=== PATIENT | female | born 1975 | race Hispanic/Latino ===

== ENCOUNTER 2018-03-18 13:59 | Emergency (ER) | payer MEDICARE ==
[2018-03-18 15:09] VITALS: BP 102/50
[2018-03-18] MEDS ORDERED: BACTRIM DS PO ONE (15:43)
[2018-03-18] MEDS ORDERED: NORCO 5/325 PO ONE (15:43)
[2018-03-18] MEDS ORDERED: MOTRIN PO ONE (15:45)
--- NOTE | 2018-03-18 16:00 | Emergency Department Report ---
- General Chief complaint: Wound/Laceration Stated complaint: SPIDER BITE Time Seen by Provider: 03/18/18 15:27 Source: patient Mode of arrival: Ambulatory Limitations: No Limitations - History of Present Illness Initial comments: 42-year-old female with a past medical history of bipolar disorder, schizoaffective disorder, and PTSD presents from [facility] for a wound to her distal forearm proximal to the wrist. Patient states that the wound has been there for several weeks initially started out with bite wounds and a small lump. He progressed and increased in size. Patient has been expressing pus from the wound. She complains of intermittent chills without documented fever. She has had intermittent nausea vomiting without any vomiting today. No reports of abdominal pain. She has been placing adhesive bandages over the area which have been partially removing skin when she was change the bandage because it does did not hear portion of the finish was not big enough to cover the whole wound. Patient states she has received tetanus 4 years ago. She has not been by a physician since wound has been present. Patient states she has not currently receiving psychiatric treatment and she is cyst renting a room at [facility] because it is affordable - Related Data Previous Rx's Medication Instructions Recorded Last Taken Type HYDROcodone/APAP 5-325 [[place] 1 each PO ONCE #15 tablet 03/18/18 Unknown Rx 5-325 mg TAB] Ibuprofen [Motrin 800 MG tab] 800 mg PO ONCE #30 tablet 03/18/18 Unknown Rx Ondansetron [Zofran Odt] 4 mg PO Q8HR PRN #20 tab.rapdis 03/18/18 Unknown Rx Sulfamethoxazole/Trimethoprim 1 each PO ONCE #20 tablet 03/18/18 Unknown Rx [Bactrim DS TAB] Allergies Allergy/AdvReac Type Severity Reaction Status Date / Time lamotrigine [From Lamictal] Allergy Itching Verified 03/18/18 14:16 oxcarbazepine Allergy Itching Verified 03/18/18 14:16 [From Trileptal] Abscess Boil HPI - HPI Chief Complaint: Wound/Laceration Stated Complaint: SPIDER BITE Time Seen by Provider: 03/18/18 15:27 Home Medications: Previous Rx's Medication Instructions Recorded Last Taken Type HYDROcodone/APAP 5-325 [[place] 1 each PO ONCE #15 tablet 03/18/18 Unknown Rx 5-325 mg TAB] Ibuprofen [Motrin 800 MG tab] 800 mg PO ONCE #30 tablet 03/18/18 Unknown Rx Ondansetron [Zofran Odt] 4 mg PO Q8HR PRN #20 tab.rapdis 03/18/18 Unknown Rx Sulfamethoxazole/Trimethoprim 1 each PO ONCE #20 tablet 03/18/18 Unknown Rx [Bactrim DS TAB] Allergies/Adverse Reactions: Allergies Allergy/AdvReac Type Severity Reaction Status Date / Time lamotrigine [From Lamictal] Allergy Itching Verified 03/18/18 14:16 oxcarbazepine Allergy Itching Verified 03/18/18 14:16 [From Trileptal] ED Review of Systems ROS: Stated complaint: SPIDER BITE Other details as noted in HPI Comment: All other systems reviewed and negative ED Past Medical Hx - Past Medical History Previous Medical History?: Yes Hx Psychiatric Treatment: Yes (Bi polar, schizo affective disorder, PTSD.) - Surgical History Past Surgical History?: Yes Additional Surgical History: C section, tonsilectomy - Social History Smoking Status: Never Smoker Substance Use Type: None - Medications Home Medications: Home Medications Medication Instructions Recorded Confirmed Last Taken Type HYDROcodone/APAP 5-325 [[place] 1 each PO ONCE #15 tablet 03/18/18 Unknown Rx 5-325 mg TAB] Ibuprofen [Motrin 800 MG tab] 800 mg PO ONCE #30 tablet 03/18/18 Unknown Rx Ondansetron [Zofran Odt] 4 mg PO Q8HR PRN #20 tab.rapdis 03/18/18 Unknown Rx Sulfamethoxazole/Trimethoprim 1 each PO ONCE #20 tablet 03/18/18 Unknown Rx [Bactrim DS TAB] ED Physical Exam - General Limitations: No Limitations - Skin Skin exam: Present: cyanosis - Other Other exam information: General: No limitations, patient is alert in no acute distress Head exam: Atraumatic, normocephalic Eyes exam: Normal appearance ENT: Moist mucous membrane, normal oropharynx Neck exam: Normal inspection, full range of motion Respiratory exam: Clear to auscultation bilateral, no wheezes, rales, crackles Cardiovascular: Normal rate and rhythm, normal heart sounds Abdomen: Soft, nondistended, and nontender, with normal bowel sounds, no rebound, or guarding Extremity: Full range of motion normal inspection no deformity Back: Normal Inspection, full range of motion, no tenderness Neurologic: Alert, oriented x3, cranial nerves intact, no motor or sensory deficit Psychiatric: normal affect, normal mood Skin: left distal forearn skin 4cm circular infected superficial wound. Very minimal area of necrosis. mild bloody drainage without pus, erythema at the board is due to skin irritation versus cellulitis. Positive warmth. pt also has a sore superficial skin sore to right jaw area ED Course Vital Signs 03/18/18 03/18/18 14:10 15:06 Temperature 98.8 F Pulse Rate 87 Respiratory 16 Rate Blood Pressure 110/83 102/50 O2 Sat by Pulse 98 Oximetry ED Medical Decision Making - Medical Decision Making Left forearm wound No purulent drainage Wound has been present for several weeks but not healing well No current nausea or vomiting Treated with [place] and Bactrim Will be discharged home with treatment Even if this is a black spider bite it occurred several weeks ago and pt is not a candidate for antivenom at this time. She currently lacks systemic symptoms - Differential Diagnosis abscesses, cellulitis, black bite Critical Care Time: No Critical care attestation.: If time is entered above; I have spent that time in minutes in the direct care of this critically ill patient, excluding procedure time. ED Disposition Clinical Impression: Infected bite wound Disposition: - TO HOME OR SELFCARE Is pt being admited?: No Does the pt Need Aspirin: No Condition: Stable Instructions: Wound Infection (ED) Additional Instructions: Take the medication as prescribed. Follow up with your doctor or the doctor provided. Return if symptoms worsen as indicated by your discharge instructions Prescriptions: HYDROcodone/APAP 5-325 [[place] 5-325 mg TAB] 1 each PO ONCE #15 tablet Ibuprofen [Motrin 800 MG tab] 800 mg PO ONCE #30 tablet Ondansetron [Zofran Odt] 4 mg PO Q8HR PRN #20 tab.rapdis PRN Reason: Nausea And Vomiting Sulfamethoxazole/Trimethoprim [Bactrim DS TAB] 1 each PO ONCE #20 tablet Referrals: [facility] [Provider Group] - 3-5 Days (primary care clinic) ADRIENNE OROZCO DO [Staff Physician] - 3-5 Days (primary care doctor) Time of Disposition: 16:16
== END 2018-03-18 17:11 | disposition home or self-care (01) ==
LOC: ED 13:59
DX: T63.301A Toxic effect of unspecified spider venom, accidental (unintentional), initial encounter (principal); L08.89 Other specified local infections of the skin and subcutaneous tissue; F31.9 Bipolar disorder, unspecified; F20.9 Schizophrenia, unspecified; F43.10 Post-traumatic stress disorder, unspecified; Z90.89 Acquired absence of other organs; Z88.8 Allergy status to other drugs, medicaments and biological substances; Y92.89 Other specified places as the place of occurrence of the external cause
CPT/HCPCS: 99282

== ENCOUNTER 2018-09-04 11:38 | Inpatient (IN) | payer MEDICARE ==
--- NOTE | 2018-09-04 11:49 | Emergency Department Report ---
Addendum entered and electronically signed by SAMANTHA HANSEN NP 09/04/18 12:38: Blank Doc - Documentation Documentation: Patient can go to [facility]. No fever. Normal CBC. Original Note: Blank Doc - Documentation Documentation: This is a 43-year-old female that presents with right hand cellulitis. Patient stated started with right eyebrow and left arm. Stated was bitten by spider to left arm and now right arm has swelling with cellulitis. This initial assessment diagnostic orders/clinical plan/treatment(s) is/are subject to change based on patient's health status, clinical progression and re-assessment by fellow clinical providers in the ED. Further treatment and workup at subsequent clinical providers discretion. Patient/guardians urged not to elope from ED s their condition may be serious if not clinically assessed and managed. Initial orders include: 1-Patient sent to Main ED for further evaluation and treatment 2-Labs
[2018-09-04 12:34] LABS: Basophils % (Auto) 0.3 % (0.0-1.8); Eosinophils % (Auto) 0.3 % (0.0-4.3); Hematocrit 41.1 % (30.3-42.9); Hemoglobin 13.7 gm/dl (10.1-14.3); Lymphocytes # (Auto) 0.7 K/mm3 (1.2-5.4); Lymphocytes % (Auto) 7.2 % (13.4-35.0); Mean Corpuscular HGB Conc 34 % (30-34); Mean Corpuscular Volume 95 fl (79-97); Monocytes # (Auto) 1.1 K/mm3 (0.0-0.8); Monocytes % (Auto) 10.8 % (0.0-7.3); Platelet Count 219 K/mm3 (140-440); Red Blood Count 4.35 M/mm3 (3.65-5.03); Red Cell Distribution Width 13.5 % (13.2-15.2)
[2018-09-04 12:53] LABS: Alanine Aminotransferase 11 units/L (7-56); Albumin 3.7 g/dL (3.9-5); BUN/Creatinine Ratio 18; Blood Urea Nitrogen 9 mg/dL (7-17); Hemolysis Index 13
[2018-09-04] MEDS ORDERED: STERILE IV STA (13:33)
[2018-09-04] MEDS ORDERED: VANCOMYCIN/NS 1 GM/250 ML 1 GM/250 ML BAG IV ONE (13:33)
[2018-09-04] MEDS ORDERED: WATER IV STA (13:33)
[2018-09-04] MEDS ORDERED: ZOSYN NICU IV STA (13:33)
[2018-09-04] MEDS ORDERED: MORPHINE ONE ×3 (13:42→16:08)
[2018-09-04] MEDS ORDERED: MORPHINE IV ONE ×2 (13:42→16:04)
[2018-09-04] MEDS ORDERED: ZOFRAN IV ONE (13:43)
[2018-09-04] MEDS ORDERED: VANCOMYCIN 1,250 MG in NACL 0.9% 250ML 250 ML IV ONE (13:45)
[2018-09-04] MEDS ORDERED: ZOSYN/NS 4.5GM/100ML 4.5 GM/100 ML VIAL IV ONE (13:47)
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
--- NOTE | 2018-09-04 15:21 | XRay Report ---
XRAY RIGHT HAND THREE VIEWS: 09/04/18 11:38:00 CLINICAL: Trauma and pain. FINDINGS: The bones and joint spaces are normal. No fracture or dislocation. Marked soft tissue edema of the dorsum of the hand. No foreign body or soft tissue air. The carpal bones are intact and the distal radius and ulna are intact. IMPRESSION: Marked soft tissue edema but no fracture or dislocation.
[2018-09-04] MEDS ORDERED: BENADRYL IV ONE (16:04)
--- NOTE | 2018-09-04 19:48 | Cat Scan Report ---
FINAL REPORT PROCEDURE: CT UPPER EXTREM RT W CON TECHNIQUE: Computerized axial tomography was performed of the RIGHT hand after the IV injection of i odinated nonionic contrast. HISTORY: Hand swelling COMPARISON: No prior studies are available for comparison. FINDINGS: There is diffuse dorsal subcutaneous edema. No organized fluid collection is seen. No enhancing mass is identified. There is limited evaluation of the extensor tendons. No fracture is seen. No focal oss eous lesions are identified IMPRESSION: No acute osseous abnormality is seen. There is diffuse dorsal soft tissue swelling which is nonspecific but could be related to cellulitis. No organized fluid collection is seen.
[2018-09-04] MEDS ORDERED: TYLENOL PO PRN (20:01)
[2018-09-04] MEDS ORDERED: ZOFRAN IV PRN (20:01)
[2018-09-04] MEDS ORDERED: SODIUM CHLORIDE FLUSH SYRINGE 10 ML IV PRN (20:01)
--- NOTE | 2018-09-04 20:01 | History and Physical Report ---
History of Present Illness Chief complaint: My hand is red History of present illness: 43 YO Female with Bipolar, Schizoaffective Disorder, Nicotine Dependence presents to ED for evaluation. Pt states that she has experienced wounds all over her body over the past several years, with worsening symptoms over the past 2 weeks. Pt also reports redness and drainage from the wound on her right hand. Pt also reports similar symptoms from the lesions on her right shoulder, right forearm, and right eyebrow. Pt transported to [facility] by family for further care and evaluation. Pt seen and evaluated in ED and found to have R hand Cellulitis, as well as suspected Pyoderma Gangrenosum. Pt admitted to medical floor and initiated on IV antibiotic therapy. Past History Past Medical History: other (Bipolar, Schizophrenia) Past Surgical History: , tonsillectomy Social history: smoking Family history: no significant family history (reviewed) Medications and Allergies Allergies Allergy/AdvReac Type Severity Reaction Status Date / Time lamotrigine [From Lamictal] Allergy Itching Verified 03/18/18 14:16 oxcarbazepine Allergy Itching Verified 03/18/18 14:16 [From Trileptal] Home Medications Medication Instructions Recorded Confirmed Last Taken Type No Known Home Medications [No 09/04/18 09/04/18 Unknown History Reported Home Medications] Review of Systems Constitutional: no weight loss, no weight gain, no fever, no chills Ears, nose, mouth and throat: no ear pain, no ear discharge, no tinnitis, no decreased hearing, no nose pain Breasts: no change in shape, no swelling, no mass Cardiovascular: no chest pain, no orthopnea, no palpitations, no rapid/irregular heart beat, no edema Respiratory: no cough, no cough with sputum, no excessive sputum, no hemoptysis Gastrointestinal: no abdominal pain, no nausea, no vomiting, no diarrhea Genitourinary Female: no dysmenorrhea, no pelvic pain, no flank pain, no menorrhagia, no dysuria, no urinary frequency Rectal: no pain, no incontinence, no bleeding Musculoskeletal: no neck stiffness, no neck pain, no shooting arm pain, no arm numbness/tingling, no low back pain Integumentary: redness, sores, lesions, no jaundice, no boils, no growths, no bullae Neurological: no transient paralysis, no paralysis, no weakness, no parathesias, no numbness, no tingling Psychiatric: no anxiety, no memory loss, no change in sleep habits, no sleep disturbances, no insomnia Endocrine: no cold intolerance, no heat intolerance, no polyphagia, no polydipsia, no polyuria, no nocturia Hematologic/Lymphatic: no easy bruising, no easy bleeding Allergic/Immunologic: no urticaria, no allergic rhinitis, no wheezing Exam - Constitutional Vitals: Temp Pulse Resp BP Pulse Ox 98.8 F 89 19 103/55 98 09/04/18 19:35 09/04/18 19:35 09/04/18 19:35 09/04/18 19:35 09/04/18 19:35 General appearance: Present: mild distress - EENT Eyes: Present: PERRL ENT: hearing intact, clear oral mucosa - Neck Neck: Present: supple, normal ROM - Respiratory Respiratory effort: normal Respiratory: bilateral: CTA - Cardiovascular Heart Sounds: Present: S1 & S2. Absent: rub, click - Extremities Extremities: pulses symmetrical, No edema Peripheral Pulses: within normal limits - Abdominal General gastrointestinal: Present: soft, non-tender, non-distended, normal bowel sounds Female genitourinary: Present: normal - Integumentary Integumentary: Present: clear, warm, erythema - Musculoskeletal Musculoskeletal: gait normal, strength equal bilaterally - Psychiatric Psychiatric: appropriate mood/affect, intact judgment & insight - Neurologic Neurologic: CNII-XII intact, moves all extremities Results - Labs CBC & Chem 7: 09/04/18 12:02 09/04/18 12:02 Labs: Abnormal lab results 09/04/18 09/04/18 Range/Units 12:02 12:02 Lymph % (Auto) 7.2 L (13.4-35.0) % [place] % (Auto) 10.8 H (0.0-7.3) % Lymph # 0.7 L (1.2-5.4) K/mm3 [place] # 1.1 H (0.0-0.8) K/mm3 Seg Neutrophils % 81.4 H (40.0-70.0) % Seg Neutrophils # 8.1 H (1.8-7.7) K/mm3 Creatinine 0.5 L (0.7-1.2) mg/dL Albumin 3.7 L (3.9-5) g/dL Assessment and Plan - Patient Problems (1) Cellulitis of hand, right Current Visit: Yes Status: Acute Plan to address problem: IV antibiotic therapy, Xray right Hand, CT Right hand, wound care consulted. (2) Bipolar disorder Current Visit: Yes Status: Acute (3) Pyoderma gangrenosum Current Visit: Yes Status: Acute Plan to address problem: ESR, CRP, ANCA, hepatitis panel, Serum/urine Protein Electrophoresis, Topical Triamcinolone BID (4) DVT prophylaxis Current Visit: Yes Status: Acute Plan to address problem: SCD to BLE while in bed.
[2018-09-04] MEDS ORDERED: VANCOMYCIN PHARMACY TO DOSE IV SCH (21:00)
[2018-09-04 22:32] LABS: Hepatitis B Surface Antigen Non-Reactive (Negative); Hepatitis C Virus Antibody Non-Reactive (NonReactive)
[2018-09-05] MEDS: PERCOCET 5/325 PO PRN ×4 (00:02→22:34)
[2018-09-05] MEDS: KENALOG TP SCH ×2 (00:03→10:08)
[2018-09-05] MEDS: SODIUM CHLORIDE FLUSH SYRINGE 10 ML IV SCH ×2 (00:03→10:09)
[2018-09-05] MEDS: VANCOMYCIN/NS 1 GM/250 ML 1 GM/250 ML BAG IV SCH ×2 (02:10→13:52)
--- NOTE | 2018-09-05 10:30 | Progress Note ---
Assessment and Plan Assessment and plan: Right hand cellulitis. Continue IV antibiotics. Wound care consultation. 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 No abscess. ID consultation. ? Pyoderma gangrenosum. Follow-up ESR, CRP, ANCA, hepatitis panel, Serum/urine Protein Electrophoresis, Bipolar disorder. Continue medications. DVT prophylaxis. SCD to BLE while in bed. History Interval history: 43 YO Female with Bipolar, Schizoaffective Disorder, Nicotine Dependence admitted to the [facility] with diagnosis of right hand/forearm cellulitis. Pt states that she has experienced wounds all over her body over the past several years, with worsening symptoms over the past 2 weeks. No new issues overnight. Hospitalist Physical - Constitutional Vitals: Temp Pulse Resp BP Pulse Ox 98.0 F 75 18 92/49 98 09/05/18 06:21 09/05/18 06:21 09/05/18 06:21 09/05/18 06:21 09/05/18 10:24 General appearance: Present: mild distress - EENT Eyes: Present: PERRL, EOM intact ENT: hearing intact, clear oral mucosa, dentition normal - Neck Neck: Present: supple, normal ROM - Respiratory Respiratory effort: normal Respiratory: bilateral: CTA - Cardiovascular Rhythm: regular Heart Sounds: Present: S1 & S2. Absent: gallop, rub - Extremities Extremities: no ischemia, Full ROM, abnormal (right forearm erythema with quarter size open wound lateral wrist) - Abdominal General gastrointestinal: soft, non-tender, non-distended, normal bowel sounds - Integumentary Integumentary: Present: clear, warm, dry - Neurologic Neurologic: CNII-XII intact, moves all extremities Results - Labs CBC & Chem 7: 09/04/18 12:02 09/04/18 12:02 Labs: Laboratory Last Values WBC 9.9 K/mm3 (4.5-11.0) 09/04/18 12:02 RBC 4.35 M/mm3 (3.65-5.03) 09/04/18 12:02 Hgb 13.7 gm/dl (10.1-14.3) 09/04/18 12:02 Hct 41.1 % (30.3-42.9) 09/04/18 12:02 MCV 95 fl (79-97) 09/04/18 12:02 MCH 32 pg (28-32) 09/04/18 12:02 MCHC 34 % (30-34) 09/04/18 12:02 RDW 13.5 % (13.2-15.2) 09/04/18 12:02 Plt Count 219 K/mm3 (140-440) 09/04/18 12:02 Lymph % (Auto) 7.2 % (13.4-35.0) L 09/04/18 12:02 [place]alfa % (Auto) 10.8 % (0.0-7.3) H 09/04/18 12:02 Eos % (Auto) 0.3 % (0.0-4.3) 09/04/18 12:02 Baso % (Auto) 0.3 % (0.0-1.8) 09/04/18 12:02 Lymph # 0.7 K/mm3 (1.2-5.4) L 09/04/18 12:02 [place] # 1.1 K/mm3 (0.0-0.8) H 09/04/18 12:02 Eos # 0.0 K/mm3 (0.0-0.4) 09/04/18 12:02 Baso # 0.0 K/mm3 (0.0-0.1) 09/04/18 12:02 Seg Neutrophils % 81.4 % (40.0-70.0) H 09/04/18 12:02 Seg Neutrophils # 8.1 K/mm3 (1.8-7.7) H 09/04/18 12:02 ESR 38 mm/Hr (0-20) 09/04/18 21:26 Sodium 137 mmol/L (137-145) 09/04/18 12:02 Potassium 3.6 mmol/L (3.6-5.0) 09/04/18 12:02 Chloride 98.9 mmol/L (98-107) 09/04/18 12:02 Carbon Dioxide 26 mmol/L (22-30) 09/04/18 12:02 Anion Gap 16 mmol/L 09/04/18 12:02 BUN 9 mg/dL (7-17) 09/04/18 12:02 Creatinine 0.5 mg/dL (0.7-1.2) L 09/04/18 12:02 Estimated GFR > 60 ml/min 09/04/18 12:02 BUN/Creatinine Ratio 18 % 09/04/18 12:02 Glucose 93 mg/dL (65-100) 09/04/18 12:02 Lactic Acid 1.30 mmol/L (0.7-2.0) 09/04/18 13:46 Calcium 9.0 mg/dL (8.4-10.2) 09/04/18 12:02 Total Bilirubin 0.80 mg/dL (0.1-1.2) 09/04/18 12:02 AST 13 units/L (5-40) 09/04/18 12:02 ALT 11 units/L (7-56) 09/04/18 12:02 Alkaline Phosphatase 68 units/L (35-129) 09/04/18 12:02 C-Reactive Protein 14.90 mg/dL (0.00-1.30) H 09/04/18 21:35 Total Protein 7.1 g/dL (6.3-8.2) 09/04/18 12:02 Albumin 3.7 g/dL (3.9-5) L 09/04/18 12:02 Albumin/Globulin Ratio 1.1 % 09/04/18 12:02 HCG, Qual Negative (Negative) 09/04/18 12:02 Hepatitis A IgM Ab Non-reactive (NonReactive) 09/04/18 21:34 Hep Bs Antigen Non-reactive (Negative) 09/04/18 21:34 Hep B Core IgM Ab Non-reactive (NonReactive) 09/04/18 21:34 Hepatitis C Antibody Non-reactive (NonReactive) 09/04/18 21:34
--- NOTE | 2018-09-05 16:13 | Consultation ---
History of Present Illness - Reason for Consult Consult date: 09/05/18 Right hand cellulitis, ?pyoderma Requesting physician: LUIS WILD - History of Present Illness The patient is a 43-year-old female with schizoaffective disorder, bipolar disorder who presented to the emergency room yesterday with complaints of multiple wounds including right hand swelling and pain. About 2 weeks ago, she developed a wound around her right eyebrow apparently some drainage, she a ttributes this to her shaving her eyebrows, then later, she developed redness, pain and swelling of her right hand that progressively got worse and was associated with some fevers and chills and night sweats. She also reports additional wounds including her left forearm following a similar timeline. Apparently, she had a spider bite to her left forearm several months ago resulting in a wound that but had completely healed. Otherwise she denies any other systemic complaints. She received a dose of Zosyn and vancomycin in the emergency room and now has been continued on vancomycin. Infectious diseases was consulted for additional recommendations. She is disabled. Denies any smoking or IV drug use. He is smoked some marijuana in the past. Denies any alcohol use. She denies any physical abuse or trauma. She previously used to stay note , and about 4 days ago she moved to a town house where she is renting one room. Apparently, she's had spider bites before and has seen cockroaches and bedbugs in the hotel where she used to live. Review of Systems: General: no fevers,chills or rigors here HEENT: no new visual disturbance Respiratory: No cough, sputum, hemoptysis or shortness of breath Cardiovascular: No chest pain, syncope Gastrointestinal: No nausea, vomiting or diarrhea Genitourinary: No dysuria or hematuria Musculoskeletal: No new or worsening neck pain or back pain Neurologic: No headaches, seizures Hematologic: No easy bruising or bleeding Endocrine: No night sweats or acute weight loss Skin: negative for rash, jaundice Psychiatric: No suicidal or homicidal ideation Past History Past Medical History: other (Bipolar, Schizophrenia) Past Surgical History: , tonsillectomy Social history: smoking Family history: no significant family history (reviewed) Medications and Allergies Allergies Allergy/AdvReac Type Severity Reaction Status Date / Time lamotrigine [From Lamictal] Allergy Itching Verified 03/18/18 14:16 oxcarbazepine Allergy Itching Verified 03/18/18 14:16 [From Trileptal] Home Medications Medication Instructions Recorded Confirmed Last Taken Type No Known Home Medications [No 09/04/18 09/04/18 Unknown History Reported Home Medications] Active Meds: Active Medications Acetaminophen (Tylenol) 650 mg PO Q4H PRN PRN Reason: Pain MILD(1-3)/Fever >100.5/RUSSO Vancomycin HCl (Vancomycin/Ns 1 Gm/250 Ml) 1 gm in 250 mls @ 166.667 mls/hr IV Q12H [facility] Last Admin: 09/05/18 13:52 Dose: 166.667 mls/hr Documented by: Ondansetron HCl (Zofran) 4 mg IV Q8H PRN PRN Reason: Nausea And Vomiting Oxycodone/Acetaminophen (Percocet 5/325) 1 tab PO Q4H PRN PRN Reason: Pain, Moderate (4-6) Last Admin: 09/05/18 08:40 Dose: 1 tab Documented by: Sodium Chloride (Sodium Chloride Flush Syringe 10 Ml) 10 ml IV BID [facility] Last Admin: 09/05/18 10:09 Dose: 10 ml Documented by: Sodium Chloride (Sodium Chloride Flush Syringe 10 Ml) 10 ml IV PRN PRN PRN Reason: LINE FLUSH Triamcinolone Acetonide (Kenalog) 1 applic TP BID [facility] Last Admin: 09/05/18 10:08 Dose: 1 applic Documented by: Physical Examination - Physical Exam Narrative exam: Physical Exam: Constitutional: Alert, cooperative. No acute distress Head, Ears, Nose: Normocephalic, atraumatic. External ears, nose normal Eyes: Conjunctivae/corneas clear. No icterus. No ptosis. Neck: Supple, no meningeal signs Oral: dentition fair, no thrush Cardiovascular: S1, S2 normal. Respiratory: Good air entry, clear to auscultation bilaterally GI: Soft, non-tender; bowel sounds normal. No peritoneal signs Musculoskeletal: No pedal edema, no cyanosis. Skin: Right eyebrow about 1.5 cm superficial wound without any purulence or drainage. There is no warmth or tenderness. Right arm with superficial abrasion on again without purulence or drainage or acute inflammation. Similar lesion also on the right shoulder blade area. Left forearm with superficial wound with clean base with no surrounding redness or tenderness. Right hand dorsal surface with a wound with a central eschar and surrounding redness, warmth and tenderness. No active drainage or purulence, no areas of fluctuation. Hem/Lymphatic: No palpable cervical or supraclavicular nodes. No lymphangitis Psych: Mood ok. Affect normal Neurological: Awake, alert, oriented. No gross abnormality - Constitutional Vitals: Vital Signs Temp Pulse Resp BP Pulse Ox 99.3 F 80 18 90/50 97 09/05/18 12:50 09/05/18 12:50 09/05/18 12:50 09/05/18 12:50 09/05/18 12:50 Temperature -Last 24 Hours Temperature 99.3 F Temperature 98.0 F Temperature 98.6 F Temperature 98.8 F Temperature 98.7 F Results - Labs CBC & Chem 7: 09/04/18 12:02 09/04/18 12:02 Labs: Abnormal lab results 09/04/18 Range/Units 21:35 C-Reactive Protein 14.90 H (0.00-1.30) mg/dL Imaging: personally reviewed: CT of the right hand with IV contrast showed soft tissue swelling consistent with cellulitis, no underlying abscess or bony abnormality. Assessment and Plan Cultures: 09/04/2018 blood culture: No growth A/P: 43-year-old female with schizoaffective disorder, bipolar disorder admitted with: 1) Right hand cellulitis: Right hand does appear warm, swollen and tender and seems to be responding to IV antibiotics. Continue IV vancomycin for now. 2) Multiple other wounds involving right eyebrow, right arm, right shoulder blade, left forearm: These are not warm, tender. There is no purulence or drainage. These do not appear to be infected. Right eyebrow wound seemingly was associated with eyebrow shaving hence raises the concern for possible pathergy which is associated with pyoderma. Agree with checking for vasculitis and autoimmune etiology. Also check hepatitis B and C. Urine tox screen ordered. Continue wound care. Recs: - Continue IV Vancomycin, target trough: 10-20 mcg/ml - f/u hepatitis panel, vasculitic panel - urinary tox screen ordered - continue wound care - HIV ordered MD [facility] C: [phone] O: [phone] F: [phone]
[2018-09-06] MEDS: KENALOG TP SCH ×3 (00:27→21:38)
[2018-09-06] MEDS: SODIUM CHLORIDE FLUSH SYRINGE 10 ML IV SCH ×3 (00:27→21:33)
[2018-09-06] MEDS: VANCOMYCIN/NS 1 GM/250 ML 1 GM/250 ML BAG IV SCH ×2 (03:47→13:31)
[2018-09-06] MEDS: PERCOCET 5/325 PO PRN ×3 (04:59→21:34)
[2018-09-06 05:23] LABS: Basophils % (Auto) 1.1 % (0.0-1.8); Eosinophils # (Auto) 0.1 K/mm3 (0.0-0.4); Eosinophils % (Auto) 3.4 % (0.0-4.3); Hematocrit 31.5 % (30.3-42.9); Hemoglobin 10.9 gm/dl (10.1-14.3); Lymphocytes # (Auto) 1.2 K/mm3 (1.2-5.4); Lymphocytes % (Auto) 31.4 % (13.4-35.0); Mean Corpuscular HGB Conc 35 % (30-34); Mean Corpuscular Volume 93 fl (79-97); Monocytes # (Auto) 0.4 K/mm3 (0.0-0.8); Monocytes % (Auto) 11.8 % (0.0-7.3); Platelet Count 207 K/mm3 (140-440); Red Blood Count 3.38 M/mm3 (3.65-5.03); Red Cell Distribution Width 13.6 % (13.2-15.2)
[2018-09-06 06:40] LABS: BUN/Creatinine Ratio 23; Blood Urea Nitrogen 9 mg/dL (7-17); Calcium 7.8 mg/dL (8.4-10.2); Hemolysis Index 3
--- NOTE | 2018-09-06 10:44 | Progress Note ---
Assessment and Plan Cultures: 09/04/2018 blood culture: No growth A/P: 43-year-old female with schizoaffective disorder, bipolar disorder admitted with: 1) Right hand cellulitis: Right hand does appear warm, swollen and tender and seems to be responding to IV antibiotics. Continue IV vancomycin for now. -ESR 38 -CRP 14.9 2) Multiple other wounds involving right eyebrow, right arm, right shoulder b lade, left forearm: These are not warm, tender. There is no purulence or drainage. These do not appear to be infected. Right eyebrow wound seemingly was associated with eyebrow shaving hence raises the concern for possible pathergy which is associated with pyoderma. Agree with checking for vasculitis and autoimmune etiology. Also check hepatitis B and C. Urine tox screen ordered. Will also check EZEQUIEL, C3, C4. Continue wound care. Recs: - Continue IV Vancomycin, target trough: 10-20 mcg/ml, D2 - f/u vasculitic panel - f/u urinary tox screen ordered - continue wound care -EZEQUIEL, C3 and C4 ordered Dr. Solares will be semiconductor packages platemaker this weekend, . Please call for questions. [facility] M: [id number] O:[phone] Subjective Date of service: 09/06/18 Interval history: Patient seen and examined. Stated that her hand was feeling better today, no fevers. Nurses notes, lab and reports reviewed, discussed with patient.. Objective - Exam Narrative Exam: Constitutional: Alert, cooperative. No acute distress Head, Ears, Nose: Normocephalic, atraumatic. External ears, nose normal Eyes: Conjunctivae/corneas clear. No icterus. No ptosis. Neck: Supple, no meningeal signs Oral: dentition fair, no thrush Cardiovascular: S1, S2 normal. Respiratory: Good air entry, clear to auscultation bilaterally GI: Soft, non-tender; bowel sounds normal. No peritoneal signs Musculoskeletal: No pedal edema, no cyanosis. Skin: Right eyebrow about 1.5 cm superficial wound without any purulence or drainage. There is no warmth or tenderness. Right arm with superficial abrasion on again without purulence or drainage or acute inflammation. Similar lesion also on the right shoulder blade area. Left forearm with superficial wound with clean base with no surrounding redness or tenderness. Right hand dorsal surface with a wound with a central eschar and surrounding redness, warmth and tenderness. No active drainage or purulence, no areas of fluctuation. Hem/Lymphatic: No palpable cervical or supraclavicular nodes. No lymphangitis Psych: Mood ok. Affect normal Neurological: Awake, alert, oriented. No gross abnormalit - Constitutional Vitals: Vital Signs Temp Pulse Resp BP Pulse Ox 97.5 F L 65 20 87/49 98 09/06/18 05:03 09/06/18 05:03 09/06/18 05:03 09/06/18 05:03 09/06/18 05:03 Temperature -Last 24 Hours Temperature 97.5 F Temperature 97.9 F Temperature 98.1 F Temperature 99.3 F - Labs CBC & Chem 7: 09/06/18 05:05 09/06/18 05:05 Labs: Abnormal lab results 09/06/18 09/06/18 Range/Units 05:05 05:05 WBC 3.7 L (4.5-11.0) K/mm3 RBC 3.38 L (3.65-5.03) M/mm3 MCHC 35 H (30-34) % [place] % (Auto) 11.8 H (0.0-7.3) % Chloride 107.1 H (98-107) mmol/L Creatinine 0.4 L (0.7-1.2) mg/dL Calcium 7.8 L (8.4-10.2) mg/dL
--- NOTE | 2018-09-06 14:26 | Progress Note ---
Assessment and Plan Assessment and plan: Right hand cellulitis. Continue IV antibiotics. Wound care. CT scan reveals diffuse dorsal subcutaneous edema artist representative of cellulitis. No abscess. ID following. ? Pyoderma gangrenosum. Follow-up ESR, CRP, ANCA, hepatitis panel, Serum/urine Protein Electrophoresis, Check Hep B and C Bipolar disorder. Continue medications. DVT prophylaxis. SCD to BLE while in bed. History Interval history: 43 YO Female with Bipolar, Schizoaffective Disorder, Nicotine Dependence [facility] with diagnosis of right hand/forearm cellulitis . Pt states that she has experienced wounds all over her body over the past several years, with worsening symptoms over the past 2 weeks. No new issues overnight. Hospitalist Physical - Constitutional Vitals: Temp Pulse Resp BP Pulse Ox 97.6 F 71 16 113/55 98 09/06/18 12:01 09/06/18 12:01 09/06/18 12:01 09/06/18 12:01 09/06/18 12:01 General appearance: Present: mild distress - EENT Eyes: Present: PERRL, EOM intact ENT: hearing intact, clear oral mucosa, dentition normal - Neck Neck: Present: supple, normal ROM - Respiratory Respiratory effort: normal Respiratory: bilateral: CTA - Cardiovascular Rhythm: regular Heart Sounds: Present: S1 & S2. Absent: gallop, rub - Extremities Extremities: no ischemia, No edema, Full ROM - Abdominal General gastrointestinal: soft, non-tender, non-distended, normal bowel sounds - Integumentary Integumentary: Present: clear, warm, dry - Neurologic Neurologic: CNII-XII intact, moves all extremities Results - Labs CBC & Chem 7: 09/06/18 05:05 09/06/18 05:05 Labs: Laboratory Last Values WBC 3.7 K/mm3 (4.5-11.0) L 09/06/18 05:05 RBC 3.38 M/mm3 (3.65-5.03) L 09/06/18 05:05 Hgb 10.9 gm/dl (10.1-14.3) 09/06/18 05:05 Hct 31.5 % (30.3-42.9) D 09/06/18 05:05 MCV 93 fl (79-97) 09/06/18 05:05 MCH 32 pg (28-32) 09/06/18 05:05 MCHC 35 % (30-34) H 09/06/18 05:05 RDW 13.6 % (13.2-15.2) 09/06/18 05:05 Plt Count 207 K/mm3 (140-440) 09/06/18 05:05 Lymph % (Auto) 31.4 % (13.4-35.0) 09/06/18 05:05 [place] % (Auto) 11.8 % (0.0-7.3) H 09/06/18 05:05 Eos % (Auto) 3.4 % (0.0-4.3) 09/06/18 05:05 Baso % (Auto) 1.1 % (0.0-1.8) 09/06/18 05:05 Lymph # 1.2 K/mm3 (1.2-5.4) 09/06/18 05:05 [place] # 0.4 K/mm3 (0.0-0.8) 09/06/18 05:05 Eos # 0.1 K/mm3 (0.0-0.4) 09/06/18 05:05 Baso # 0.0 K/mm3 (0.0-0.1) 09/06/18 05:05 Seg Neutrophils % 52.3 % (40.0-70.0) 09/06/18 05:05 Seg Neutrophils # 2.0 K/mm3 (1.8-7.7) 09/06/18 05:05 ESR 38 mm/Hr (0-20) 09/04/18 21:26 Sodium 142 mmol/L (137-145) 09/06/18 05:05 Potassium 4.1 mmol/L (3.6-5.0) 09/06/18 05:05 Chloride 107.1 mmol/L (98-107) H 09/06/18 05:05 Carbon Dioxide 27 mmol/L (22-30) 09/06/18 05:05 Anion Gap 12 mmol/L 09/06/18 05:05 BUN 9 mg/dL (7-17) 09/06/18 05:05 Creatinine 0.4 mg/dL (0.7-1.2) L 09/06/18 05:05 Estimated GFR > 60 ml/min 09/06/18 05:05 BUN/Creatinine Ratio 23 % 09/06/18 05:05 Glucose 92 mg/dL (65-100) 09/06/18 05:05 Lactic Acid 1.30 mmol/L (0.7-2.0) 09/04/18 13:46 Calcium 7.8 mg/dL (8.4-10.2) L 09/06/18 05:05 Total Bilirubin 0.80 mg/dL (0.1-1.2) 09/04/18 12:02 AST 13 units/L (5-40) 09/04/18 12:02 ALT 11 units/L (7-56) 09/04/18 12:02 Alkaline Phosphatase 68 units/L (35-129) 09/04/18 12:02 C-Reactive Protein 14.90 mg/dL (0.00-1.30) H 09/04/18 21:35 Total Protein 7.1 g/dL (6.3-8.2) 09/04/18 12:02 Albumin 3.7 g/dL (3.9-5) L 09/04/18 12:02 Albumin/Globulin Ratio 1.1 % 09/04/18 12:02 HCG, Qual Negative (Negative) 09/04/18 12:02 Hepatitis A IgM Ab Non-reactive (NonReactive) 09/04/18 21:34 Hep Bs Antigen Non-reactive (Negative) 09/04/18 21:34 Hep B Core IgM Ab Non-reactive (NonReactive) 09/04/18 21:34 Hepatitis C Antibody Non-reactive (NonReactive) 09/04/18 21:34 HIV 1&2 Antibody Rapid Non react (Non React) 09/06/18 05:05 HIV P24 Antigen Non react (Non React) 09/06/18 05:05
[2018-09-06 17:50] LABS: Amphetamine Screen,Urine PRESUMPTIVE NEGATIVE; Benzodiazepines Screen,Urine PRESUMPTIVE NEGATIVE; Cannabinoid Screen,Urine PRESUMPTIVE NEGATIVE; Cocaine Screen,Urine PRESUMPTIVE NEGATIVE; Methadone Screen,Urine PRESUMPTIVE NEGATIVE; Opiate Screen,Urine PRESUMPTIVE NEGATIVE
[2018-09-07] MEDS: VANCOMYCIN/NS 1 GM/250 ML 1 GM/250 ML BAG IV SCH ×2 (01:43→14:22)
[2018-09-07] MEDS: KENALOG TP SCH ×2 (10:19→21:19)
--- NOTE | 2018-09-07 12:34 | Consultation ---
History of Present Illness Consult date: 09/07/18 Chief complaint: wounds - History of present illness History of present illness: 43 yo F with hx of mental illness, noncompliant with followup presents to the hospital with multiple wounds. She states she is self mutilator and has been self inducing wounds on various parts of her body since she was a teenager. She is upset that a workup is being performed on her because she admits that she will never follow up to treat any of these issues. Surgery was consulted to evaluate the patient for possible skin biopsy to r/o pyoderma. The patient told me she is not agreeable to a biopsy. She denies f/c, cp, sob, n/v, abd pain, c/d . She denies drainage from the wounds. She thinks they keep getting infected because she is constantly picking at them. Past History Past Medical History: other (Bipolar, Schizophrenia) Past Surgical History: , tonsillectomy Social history: smoking Family history: no significant family history (reviewed) Medications and Allergies Allergies Allergy/AdvReac Type Severity Reaction Status Date / Time lamotrigine [From Lamictal] Allergy Itching Verified 03/18/18 14:16 oxcarbazepine Allergy Itching Verified 03/18/18 14:16 [From Trileptal] Home Medications Medication Instructions Recorded Confirmed Last Taken Type No Known Home Medications [No 09/04/18 09/04/18 Unknown History Reported Home Medications] Active Meds: Active Medications Acetaminophen (Tylenol) 650 mg PO Q4H PRN PRN Reason: Pain MILD(1-3)/Fever >100.5/RUSSO Vancomycin HCl (Vancomycin/Ns 1 Gm/250 Ml) 1 gm in 250 mls @ 166.667 mls/hr IV Q12H [facility] Last Admin: 09/07/18 01:43 Dose: 166.667 mls/hr Documented by: Ondansetron HCl (Zofran) 4 mg IV Q8H PRN PRN Reason: Nausea And Vomiting Oxycodone/Acetaminophen (Percocet 5/325) 1 tab PO Q4H PRN PRN Reason: Pain, Moderate (4-6) Last Admin: 09/06/18 21:34 Dose: 1 tab Documented by: Sodium Chloride (Sodium Chloride Flush Syringe 10 Ml) 10 ml IV BID [facility] Last Admin: 09/06/18 21:33 Dose: 10 ml Documented by: Sodium Chloride (Sodium Chloride Flush Syringe 10 Ml) 10 ml IV PRN PRN PRN Reason: LINE FLUSH Triamcinolone Acetonide (Kenalog) 1 applic TP BID [facility] Last Admin: 09/07/18 10:19 Dose: Not Given Documented by: Review of Systems All systems: negative (10 pt ROS performed and negative except for that listed in HPI) Exam Vital Signs Temp Pulse Resp BP Pulse Ox 99.3 F 99 H 18 115/75 96 09/04/18 11:46 09/04/18 11:46 09/04/18 11:46 09/04/18 11:46 09/04/18 11:46 Narrative exam: Gen: AAOx3. anxious and tearful ENT; no sclerlal icterus or conjunctival pallor. Scab over right eyebrow CV: S1, S2+ Resp; even and unlabored Ext: bilateral upper extremity dressing c/d/i. Pt does not allow further examination of wounds Results - Labs 09/06/18 05:05 09/06/18 05:05 Abnormal lab results 09/04/18 Range/Units 21:26 LA PTT Baseline 41 H (<=40) sec - Imaging Additional studies: Upper extremity CT Assessment and Plan 43 yo F with 1. bilateral upper extremity wounds, self induced 2. cellulitis of upper extremity wounds I reviewed chaplain resident pictures of wounds as patient did not allow examination Plan: 1. Low likelihood of pyoderma gangrenosum based on patient history. She admits to self inducing the wounds and has a long history of doing this. She is NOT agreeable to biopsy. 2. continue abx per ID 3. w/u per primary team and consultants 4. continue wound care. Patient may be given the option to follow up in wound care clinic as outpatient to monitor wounds but likely will be noncompliant. She needs mental health follow up to help as well. Thank you, please call with questions.
--- NOTE | 2018-09-07 12:52 | Progress Note ---
Assessment and Plan Assessment and plan: Right hand cellulitis. Continue IV antibiotics. Wound care. CT scan reveals diffuse dorsal subcutaneous edema human resources hr representative of cellulitis. No abscess. ID following. ? Pyoderma gangrenosum. Follow-up ESR, CRP, ANCA, hepatitis panel, Serum/urine Protein Electrophoresis, Check Hep B and C Bipolar disorder. Continue medications. DVT prophylaxis. SCD to BLE while in bed. Disposition. Home in am History Interval history: 43 YO Female with Bipolar, Schizoaffective Disorder, Nicotine Dependence [facility] with diagnosis of right hand/forearm cellulitis. Pt states that she has experienced wounds all over her body over the past several years, with worsening symptoms over the past 2 weeks. No new issues overnight. Hospitalist Physical - Constitutional Vitals: Temp Pulse Resp BP Pulse Ox 97.8 F 81 24 101/41 98 09/07/18 04:41 09/07/18 04:41 09/07/18 04:41 09/07/18 04:41 09/07/18 04:41 General appearance: Present: mild distress - EENT Eyes: Present: PERRL, EOM intact ENT: hearing intact, clear oral mucosa, dentition normal - Neck Neck: Present: supple, normal ROM - Respiratory Respiratory effort: normal Respiratory: bilateral: CTA - Cardiovascular Rhythm: regular Heart Sounds: Present: S1 & S2. Absent: gallop, rub - Extremities Extremities: no ischemia, No edema, Full ROM - Abdominal General gastrointestinal: soft, non-tender, non-distended, normal bowel sounds - Integumentary Integumentary: Present: clear, warm, dry - Neurologic Neurologic: CNII-XII intact, moves all extremities Results - Labs CBC & Chem 7: 09/06/18 05:05 09/06/18 05:05 Labs: Laboratory Last Values WBC 3.7 K/mm3 (4.5-11.0) L 09/06/18 05:05 RBC 3.38 M/mm3 (3.65-5.03) L 09/06/18 05:05 Hgb 10.9 gm/dl (10.1-14.3) 09/06/18 05:05 Hct 31.5 % (30.3-42.9) D 09/06/18 05:05 MCV 93 fl (79-97) 09/06/18 05:05 MCH 32 pg (28-32) 09/06/18 05:05 MCHC 35 % (30-34) H 09/06/18 05:05 RDW 13.6 % (13.2-15.2) 09/06/18 05:05 Plt Count 207 K/mm3 (140-440) 09/06/18 05:05 Lymph % (Auto) 31.4 % (13.4-35.0) 09/06/18 05:05 [place] % (Auto) 11.8 % (0.0-7.3) H 09/06/18 05:05 Eos % (Auto) 3.4 % (0.0-4.3) 09/06/18 05:05 Baso % (Auto) 1.1 % (0.0-1.8) 09/06/18 05:05 Lymph # 1.2 K/mm3 (1.2-5.4) 09/06/18 05:05 [place] # 0.4 K/mm3 (0.0-0.8) 09/06/18 05:05 Eos # 0.1 K/mm3 (0.0-0.4) 09/06/18 05:05 Baso # 0.0 K/mm3 (0.0-0.1) 09/06/18 05:05 Seg Neutrophils % 52.3 % (40.0-70.0) 09/06/18 05:05 Seg Neutrophils # 2.0 K/mm3 (1.8-7.7) 09/06/18 05:05 ESR 38 mm/Hr (0-20) 09/04/18 21:26 Lupus Anticoagulant see below 09/04/18 21:26 LA PTT Baseline 41 sec (<=40) H 09/04/18 21:26 Sodium 142 mmol/L (137-145) 09/06/18 05:05 Potassium 4.1 mmol/L (3.6-5.0) 09/06/18 05:05 Chloride 107.1 mmol/L (98-107) H 09/06/18 05:05 Carbon Dioxide 27 mmol/L (22-30) 09/06/18 05:05 Anion Gap 12 mmol/L 09/06/18 05:05 BUN 9 mg/dL (7-17) 09/06/18 05:05 Creatinine 0.4 mg/dL (0.7-1.2) L 09/06/18 05:05 Estimated GFR > 60 ml/min 09/06/18 05:05 BUN/Creatinine Ratio 23 % 09/06/18 05:05 Glucose 92 mg/dL (65-100) 09/06/18 05:05 Lactic Acid 1.30 mmol/L (0.7-2.0) 09/04/18 13:46 Calcium 7.8 mg/dL (8.4-10.2) L 09/06/18 05:05 Total Bilirubin 0.80 mg/dL (0.1-1.2) 09/04/18 12:02 AST 13 units/L (5-40) 09/04/18 12:02 ALT 11 units/L (7-56) 09/04/18 12:02 Alkaline Phosphatase 68 units/L (35-129) 09/04/18 12:02 C-Reactive Protein 14.90 mg/dL (0.00-1.30) H 09/04/18 21:35 Total Protein 7.1 g/dL (6.3-8.2) 09/04/18 12:02 Albumin 3.7 g/dL (3.9-5) L 09/04/18 12:02 Albumin/Globulin Ratio 1.1 % 09/04/18 12:02 HCG, Qual Negative (Negative) 09/04/18 12:02 Urine Opiates Screen Presumptive negative 09/06/18 16:33 Urine Methadone Screen Presumptive negative 09/06/18 16:33 Ur Barbiturates Screen Presumptive negative 09/06/18 16:33 Ur Phencyclidine Scrn Presumptive negative 09/06/18 16:33 Ur Amphetamines Screen Presumptive negative 09/06/18 16:33 U Benzodiazepines Scrn Presumptive negative 09/06/18 16:33 Urine Cocaine Screen Presumptive negative 09/06/18 16:33 U Marijuana (THC) Screen Presumptive negative 09/06/18 16:33 Drugs of Abuse Note Disclamer 09/06/18 16:33 Hepatitis A IgM Ab Non-reactive (NonReactive) 09/04/18 21:34 Hep Bs Antigen Non-reactive (Negative) 09/04/18 21:34 Hep B Core IgM Ab Non-reactive (NonReactive) 09/04/18 21:34 Hepatitis C Antibody Non-reactive (NonReactive) 09/04/18 21:34 HIV 1&2 Antibody Rapid Non react (Non React) 09/06/18 05:05 HIV P24 Antigen Non react (Non React) 09/06/18 05:05
[2018-09-07] MEDS: MIRALAX 3350 PO SCH (14:14)
[2018-09-07] MEDS: PERCOCET 5/325 PO PRN ×2 (14:15→21:24)
[2018-09-07] MEDS: SODIUM CHLORIDE FLUSH SYRINGE 10 ML IV SCH (21:18)
[2018-09-08] MEDS: VANCOMYCIN/NS 1 GM/250 ML 1 GM/250 ML BAG IV SCH (01:51)
[2018-09-08 05:39] LABS: Albumin 3.1 g/dL (3.8-4.8); Gamma Globulin 0.9 g/dL (0.8-1.7)
--- NOTE | 2018-09-08 10:00 | Discharge Summary ---
Providers - Providers Date of Admission: 09/04/18 20:37 Date of discharge: 09/08/18 Attending physician: LUIS WILD 09/04/18 20:07 Consult to Wound/ET Nurse [CONS] Routine Reason For Exam: wound eval 09/05/18 07:29 Consult to Physician [CONS] Routine Comment: Consulting Provider: IBIS GOMES Physician Instructions: Reason For Exam: cellulitis, ?pyoderma gangrenosum 09/07/18 10:06 Consult to Physician [CONS] Routine Comment: Consulting Provider: DIXIE INIGUEZ Physician Instructions: Reason For Exam: skin bx--?pyoderma gangrenosum Primary care physician: FRANSISCA MAHER Hospitalization Reason for admission: right arm cellulitis Condition: Stable Hospital course: 43 yo F with hx of mental illness, noncompliant with followup presents to the hospital with multiple wounds. The patient was noted to have a right hand wound with surrounding cellulitis of the forearm. Patient received IV antibiotics with significant improvement. Patient was seen by ID and surgery consultation. Upon further history documented per surgery, She states she is self mutilator and has been self inducing wounds on various parts of her body since she was a teenager. She is upset that a workup is being performed on her because she admits that she will never follow up to treat any of these issues. Surgery was consulted to evaluate the patient for possible skin biopsy to r/o pyoderma. The patient told me she is not agreeable to a biopsy. She denies f/c, cp, sob, n/v, abd pain, c/d. She denies drainage from the wounds. She thinks they keep getting infected because she is constantly picking at them. The patient's cellulitis has resolved and thus she will be discharged home. Dedicated discharge time 32 minutes. Disposition: - TO HOME OR SELFCARE Time spent for discharge: 32 - Discharge Diagnoses (1) Bipolar disorder Status: Acute (2) Cellulitis of hand, right Status: Acute (3) Pyoderma gangrenosum Status: Acute Core Measure Documentation - Palliative Care Palliative Care/ Comfort Measures: Not Applicable - Core Measures Any of the following diagnoses?: none Exam - Constitutional Vitals: Temp Pulse Resp BP Pulse Ox 97.8 F 66 18 107/58 97 09/08/18 06:11 09/08/18 06:11 09/08/18 06:11 09/08/18 06:11 09/08/18 06:11 General appearance: Present: no acute distress, well-nourished - EENT Eyes: Present: PERRL ENT: hearing intact, clear oral mucosa - Neck Neck: Present: supple, normal ROM - Respiratory Respiratory effort: normal Respiratory: bilateral: CTA - Cardiovascular Heart Sounds: Present: S1 & S2. Absent: rub, click - Extremities Extremities: pulses symmetrical, No edema Peripheral Pulses: within normal limits - Abdominal General gastrointestinal: Present: soft, non-tender, non-distended, normal bowel sounds Female genitourinary: Present: normal - Integumentary Integumentary: Present: clear, warm, dry - Musculoskeletal Musculoskeletal: gait normal, strength equal bilaterally - Psychiatric Psychiatric: appropriate mood/affect, intact judgment & insight - Neurologic Neurologic: CNII-XII intact, moves all extremities Plan Activity: no restrictions Weight Bearing Status: Full Weight Bearing Diet: regular Follow up with: PRIMARY CARE, [Referring] - 3-5 Days Prescriptions: Amoxicillin/Potassium Clav [Augmentin 875-125 Tablet] 1 each PO BID #14 tablet oxyCODONE /ACETAMINOPHEN [Percocet 5/325 mg] 1 tab PO Q4H PRN #12 tablet PRN Reason: Pain, Moderate (4-6)
--- NOTE | 2018-09-08 10:37 | Progress Note ---
Assessment and Plan Cultures: 09/04/2018 blood culture: No growth A/P: 43-year-old female with schizoaffective disorder, bipolar disorder admitted with: 1) Right hand cellulitis: Right hand does appear warm, swollen and tender and seems to be responding to IV antibiotics. Continue IV vancomycin for now. -ESR 38 -CRP 14.9 -HIV negative -Hepatitis B/C - negative 2) Multiple other wounds involving right eyebrow, right arm, right shoulder blade, left forearm: These are not warm, tender. There is no purulence or drainage. These do not appear to be infected. Right eyebrow wound seemingly was associated with eyebrow shaving hence raises the concern for possible pathergy which is associated with pyoderma. Agree with checking for vasculitis and autoimmune etiology.. Will also check EZEQUIEL, C3, C4. Continue wound care. Recs: - Continue IV Vancomycin, target trough: 10-20 mcg/ml, D2 - f/u vasculitic panel - f/u urinary tox screen ordered - continue wound care -EZEQUIEL, C3 and C4 ordered -Can be discharged home on Keflex 500mg PO QID and Doxycycline 100 mg PO q 12 for 7 days -f/u ID clinic Consider surgical consult for skin biopsy from a non-infected lesions- patient refused Patient stated that she is not going to follow up with ID clinic and is not going to fill her antibiotic prescription, patient teaching given, not receptive. Madai Greer NP [facility] M: [phone] O:[phone] Subjective Date of service: 09/08/18 Interval history: Patient seen and examined. Stated that she was feeling better today and was ready to be discharged home. I attempted to give patient information regarding follow-up at ID clinic, patient stated that she was not going to follow up or fill her prescriptions for outpatient antibiotics. Patient education given, no receptive. Objective - Exam Narrative Exam: Constitutional: Alert, agitated, No acute distress Head, Ears, Nose: Normocephalic, atraumatic. External ears, nose normal Eyes: Conjunctivae/corneas clear. No icterus. No ptosis. Neck: Supple, no meningeal signs Oral: dentition fair, no thrush Cardiovascular: S1, S2 normal. Respiratory: Good air entry, clear to auscultation bilaterally GI: Soft, non-tender; bowel sounds normal. No peritoneal signs Musculoskeletal: No pedal edema, no cyanosis. Skin: Right eyebrow about 1.5 cm superficial wound without any purulence or drainage. There is no warmth or tenderness. Right arm with superficial abrasion on again without purulence or drainage or acute inflammation. Similar lesion also on the right shoulder blade area. Left forearm with superficial wound with clean base with no surrounding redness or tenderness. Right hand dorsal surface with a wound with a central eschar and surrounding redness, warmth and tenderness. No active drainage or purulence, no areas of fluctuation. Hem/Lymphatic: No palpable cervical or supraclavicular nodes. No lymphangitis Psych: Mood agitated Neurological: Awake, alert, oriented. No gross abnormality - Constitutional Vitals: Vital Signs Temp Pulse Resp BP Pulse Ox 97.8 F 66 18 107/58 97 09/08/18 06:11 09/08/18 06:11 09/08/18 06:11 09/08/18 06:11 09/08/18 06:11 Temperature -Last 24 Hours Temperature 97.8 F Temperature 97.8 F Temperature 97.7 F Temperature 97.9 F - Labs CBC & Chem 7: 09/06/18 05:05 09/06/18 05:05 Labs: Abnormal lab results 09/04/18 Range/Units 21:26 Albumin 3.1 L (3.8-4.8) g/dL [id number] 0.5 H (0.2-0.3) g/dL PEP Interpretation see below H
[2018-09-08] MEDS: MIRALAX 3350 PO SCH (11:00)
[2018-09-08] MEDS: PERCOCET 5/325 PO PRN (11:02)
[2018-09-08] MEDS: KENALOG TP SCH (11:06)
[2018-09-08] MEDS: SODIUM CHLORIDE FLUSH SYRINGE 10 ML IV SCH (11:06)
[2018-09-08 14:26] VITALS: BP 111/52
[2018-09-08 20:33] LABS: Myeloperoxidase Antibody <1.0 AI (<1.0)
[2018-09-12 11:50] LABS: ANA Screen, IFA Negative (Negative)
[2018-09-26 07:36] LABS: Abnormal Protein Band 1 SEE SCANNED RESULT; Abnormal Protein Band 2 SEE SCANNED RESULT; Albumin SEE SCANNED RESULT; Creatinine, Random Urine SEE SCANNED RESULT; Gamma Globulin SEE SCANNED RESULT; Interpretation SEE SCANNED RESULT; Protein/Creatinine Ratio SEE SCANNED RESULT
== END 2018-09-08 13:00 | disposition home or self-care (01) | DRG 603 ==
LOC: ED 11:38 → 3A 20:37
PROVIDERS: ADMIT Internal Medicine; ATTEND Hospitalist
DX: L03.113 Cellulitis of right upper limb (principal); L88 Pyoderma gangrenosum; F25.0 Schizoaffective disorder, bipolar type; F17.200 Nicotine dependence, unspecified, uncomplicated; J45.909 Unspecified asthma, uncomplicated; F43.10 Post-traumatic stress disorder, unspecified
CPT/HCPCS: 36415; 80048; 80053; 80074; 80307; 82140; 84165; 84166; 84703; 85025; 85613; 85652; 86021; 86038; 86140; 86160; 86334; 87040; 87116; 87806; 96365; 96375; 96376; G0378; J1200; J2270; J2405; J2543; J3370; J7050; Q9967

== ENCOUNTER 2019-08-21 10:13 | Emergency (ER) | payer MEDICARE ==
--- NOTE | 2019-08-21 13:10 | Emergency Department Report ---
ED General Adult HPI - General Chief complaint: Dizziness Stated complaint: DIZZY, LUPUS Time Seen by Provider: 08/21/19 12:36 Source: patient Mode of arrival: Ambulatory Limitations: No Limitations - History of Present Illness Initial comments: [id number] female complains of weakness and periodic dizziness for the last 4 months. She states that over the last 2-3 days it has been worse. She denies syncope. She denies any acute pain. She states that she vomited 4 days ago. She has some diarrhea after taking a laxative for constipation she states. She states that she took her temperature with a thermometer and it was normal. She does not complain of chest pain, abdominal pain, extremity pain. She states that she drove to [place] in a few weeks ago and flew back recently to take care of her grandmother that had a stroke. She does not complain of any dysuria or symptoms. As per previous medical records the patient has a schizo affective disorder. She is not on any mental health medications. Patient admits that she has not seen a physician nor followed up with an infectious disease doctor after her hospitalization here in September last year. She was treated for pyoderma gangrenosum of the hand: Hospitalization Reason for admission: right arm cellulitis Condition: Stable Hospital course: 43 yo F with hx of mental illness, noncompliant with followup presents to the hospital with multiple wounds. The patient was noted to have a right hand wound with surrounding cellulitis of the forearm. Patient received IV antibiotics with significant improvement. Patient was seen by ID and surgery consultation. Upon further history documented per surgery, She states she is self mutilator and has been self inducing wounds on various parts of her body since she was a teenager. She is upset that a workup is being performed on her because she admits that she will never follow up to treat any of these issues. Surgery was consulted to evaluate the patient for possible skin biopsy to r/o pyoderma. The patient told me she is not agreeable to a biopsy. She denies f/c, cp, sob, n/v, abd pain, c/d. She denies drainage from the wounds. She thinks they keep getting infected because she is constantly picking at them. The patient's cellulitis has resolved and thus she will be discharged home. Dedicated discharge time 32 minutes. Disposition: TO HOME OR SELFCARE Time spent for discharge: 32 - Discharge Diagnoses (1) Bipolar disorder Status: Acute (2) Cellulitis of hand, right Status: Acute (3) Pyoderma gangrenosum Status: Acute -: month(s) Severity scale (0 -10): 2 Consistency: intermittent Improves with: none Worsens with: none Associated Symptoms: denies other symptoms Treatments Prior to Arrival: none - Related Data Previous Rx's Medication Instructions Recorded Last Taken Type Amoxicillin/Potassium Clav 1 each PO BID #14 tablet 09/08/18 Unknown Rx [Augmentin 875-125 Tablet] DOXYCYCLINE Hyclate [Vibramycin 100 mg PO Q12HR 7 Days #14 capsule 09/08/18 Unknown Rx CAP] oxyCODONE /ACETAMINOPHEN [Percocet 1 tab PO Q4H PRN #12 tablet 09/08/18 Unknown Rx 5/325 mg] Sulfamethoxazole/Trimethoprim 1 each PO BID #14 tablet 08/21/19 Unknown Rx [Bactrim DS TAB] Allergies Allergy/AdvReac Type Severity Reaction Status Date / Time lamotrigine [From Lamictal] Allergy Itching Verified 08/21/19 10:16 oxcarbazepine Allergy Itching Verified 08/21/19 10:16 [From Trileptal] ED Review of Systems ROS: Stated complaint: DIZZY, LUPUS Other details as noted in HPI Constitutional: denies: chills, fever Eyes: denies: eye pain, eye discharge, vision change ENT: denies: ear pain, throat pain Respiratory: denies: cough, shortness of breath, wheezing Cardiovascular: denies: chest pain, palpitations Endocrine: no symptoms reported Gastrointestinal: denies: abdominal pain, nausea, diarrhea Genitourinary: denies: urgency, dysuria, discharge Musculoskeletal: denies: back pain, joint swelling, arthralgia Skin: as per HPI (states lesion on her knee chronically. There is an abraded area of her face due to scratching). denies: rash, lesions Neurological: paresthesias (bottom of both feet). denies: headache, weakness, numbness, abnormal gait Psychiatric: denies: anxiety, depression Hematological/Lymphatic: denies: easy bleeding, easy bruising ED Past Medical Hx - Past Medical History Hx Kidney Stones: Yes (Lithotripsy) Hx Psychiatric Treatment: Yes (Bi polar, schizo affective disorder, PTSD.) Hx Asthma: Yes (Bronchial Asthma) - Surgical History Additional Surgical History: C section, tonsilectomy - Social History Smoking Status: Never Smoker Substance Use Type: None - Medications Home Medications: Home Medications Medication Instructions Recorded Confirmed Last Taken Type Amoxicillin/Potassium Clav 1 each PO BID #14 tablet 09/08/18 Unknown Rx [Augmentin 875-125 Tablet] DOXYCYCLINE Hyclate [Vibramycin 100 mg PO Q12HR 7 Days #14 capsule 09/08/18 Unknown Rx CAP] oxyCODONE /ACETAMINOPHEN [Percocet 1 tab PO Q4H PRN #12 tablet 09/08/18 Unknown Rx 5/325 mg] Sulfamethoxazole/Trimethoprim 1 each PO BID #14 tablet 08/21/19 Unknown Rx [Bactrim DS TAB] ED Physical Exam - General Limitations: No Limitations General appearance: alert, in no apparent distress - Head Head exam: Present: atraumatic, normocephalic - Eye Eye exam: Present: normal appearance. Absent: scleral icterus - ENT ENT exam: Present: mucous membranes moist, other (there is an abraded area of the face which is a bit erythematous. Depth is to dermis only.) - Neck Neck exam: Present: normal inspection. Absent: tenderness, meningismus - Respiratory Respiratory exam: Present: normal lung sounds bilaterally. Absent: respiratory distress - Cardiovascular Cardiovascular Exam: Present: regular rate, normal rhythm. Absent: systolic murmur, diastolic murmur, rubs, gallop - GI/Abdominal GI/Abdominal exam: Present: soft, normal bowel sounds. Absent: distended, tenderness, guarding, rebound, rigid - Extremities Exam Extremities exam: Present: normal inspection, normal capillary refill. Absent: pedal edema, joint swelling, calf tenderness - Back Exam Back exam: Present: normal inspection. Absent: CVA tenderness (R), CVA tenderness (L) - Neurological Exam Neurological exam: Present: alert, oriented X3, CN II-XII intact. Absent: motor sensory deficit - Psychiatric Psychiatric exam: Present: normal affect, normal mood - Skin Skin exam: Present: warm, dry, intact, normal color. Absent: rash ED Course Vital Signs 08/21/19 08/21/19 10:17 11:31 Temperature 97.4 F L 98.2 F Pulse Rate 87 74 Respiratory 18 23 Rate Blood Pressure 115/54 101/51 Blood Pressure 101/51 [Right] O2 Sat by Pulse 97 100 Oximetry ED Medical Decision Making - Lab Data Result diagrams: 08/21/19 13:14 08/21/19 13:14 Laboratory Results - last 24 hr 08/21/19 08/21/19 08/21/19 13:14 13:14 13:14 WBC 5.6 RBC 4.15 Hgb 13.2 Hct 37.7 MCV 91 MCH 32 MCHC 35 H RDW 13.4 Plt Count 223 Lymph % (Auto) 17.9 [place] % (Auto) 8.9 H Eos % (Auto) 1.2 Baso % (Auto) 0.8 Lymph # 1.0 L [place] # 0.5 Eos # 0.1 Baso # 0.0 Seg Neutrophils % 71.2 H Seg Neutrophils # 4.0 PT 12.8 INR 0.95 APTT 25.9 Sodium 141 Potassium 3.8 Chloride 105.3 Carbon Dioxide 23 Anion Gap 17 BUN 18 H Creatinine 0.5 L Estimated GFR > 60 BUN/Creatinine Ratio 36 Glucose 107 H Lactic Acid Calcium 8.9 Magnesium 2.10 Total Bilirubin 0.80 Direct Bilirubin 0.2 Indirect Bilirubin 0.6 AST 27 ALT 24 Alkaline Phosphatase 77 Total Creatine Kinase CK-MB (CK-2) CK-MB (CK-2) Rel Index Total Protein 7.1 Albumin 4.0 Albumin/Globulin Ratio 1.3 08/21/19 08/21/19 13:14 13:14 WBC RBC Hgb Hct MCV MCH MCHC RDW Plt Count Lymph % (Auto) [place] % (Auto) Eos % (Auto) Baso % (Auto) Lymph # [place] # Eos # Baso # Seg Neutrophils % Seg Neutrophils # PT INR APTT Sodium Potassium Chloride Carbon Dioxide Anion Gap BUN Creatinine Estimated GFR BUN/Creatinine Ratio Glucose Lactic Acid 0.80 Calcium Magnesium Total Bilirubin Direct Bilirubin Indirect Bilirubin AST ALT Alkaline Phosphatase Total Creatine Kinase 199 H CK-MB (CK-2) 3.4 CK-MB (CK-2) Rel Index 1.7 Total Protein Albumin Albumin/Globulin Ratio Laboratory Results - last 24 hr 08/21/19 08/21/19 08/21/19 13:14 13:14 13:14 WBC 5.6 RBC 4.15 Hgb 13.2 Hct 37.7 MCV 91 MCH 32 MCHC 35 H RDW 13.4 Plt Count 223 Lymph % (Auto) 17.9 [place] % (Auto) 8.9 H Eos % (Auto) 1.2 Baso % (Auto) 0.8 Lymph # 1.0 L [place] # 0.5 Eos # 0.1 Baso # 0.0 Seg Neutrophils % 71.2 H Seg Neutrophils # 4.0 PT 12.8 INR 0.95 APTT 25.9 Sodium 141 Potassium 3.8 Chloride 105.3 Carbon Dioxide 23 Anion Gap 17 BUN 18 H Creatinine 0.5 L Estimated GFR > 60 BUN/Creatinine Ratio 36 Glucose 107 H Lactic Acid Calcium 8.9 Magnesium 2.10 Total Bilirubin 0.80 Direct Bilirubin 0.2 Indirect Bilirubin 0.6 AST 27 ALT 24 Alkaline Phosphatase 77 Total Creatine Kinase CK-MB (CK-2) CK-MB (CK-2) Rel Index Total Protein 7.1 Albumin 4.0 Albumin/Globulin Ratio 1.3 Urine Color Urine Turbidity Urine pH Ur Specific [place] Urine Protein Urine Glucose (UA) Urine Ketones Urine Blood Urine Nitrite Ur Reducing Substances Urine Bilirubin Urine Ictotest Urine Urobilinogen Ur Leukocyte Esterase Urine WBC (Auto) Urine RBC (Auto) U Epithel Cells (Auto) Urine Mucus Urine HCG, Qual 08/21/19 08/21/19 08/21/19 13:14 13:14 13:59 WBC RBC Hgb Hct MCV MCH MCHC RDW Plt Count Lymph % (Auto) [place] % (Auto) Eos % (Auto) Baso % (Auto) Lymph # [place] # Eos # Baso # Seg Neutrophils % Seg Neutrophils # PT INR APTT Sodium Potassium Chloride Carbon Dioxide Anion Gap BUN Creatinine Estimated GFR BUN/Creatinine Ratio Glucose Lactic Acid 0.80 Calcium Magnesium Total Bilirubin Direct Bilirubin Indirect Bilirubin AST ALT Alkaline Phosphatase Total Creatine Kinase 199 H CK-MB (CK-2) 3.4 CK-MB (CK-2) Rel Index 1.7 Total Protein Albumin Albumin/Globulin Ratio Urine Color Delmy Urine Turbidity Slightly-cloudy Urine pH 5.0 Ur Specific [place] 1.032 H Urine Protein <15 mg/dl Urine Glucose (UA) Neg Urine Ketones 20 Urine Blood Sm Urine Nitrite Neg Ur Reducing Substances Not Reportable Urine Bilirubin Neg Urine Ictotest Not Reportable Urine Urobilinogen 4.0 Ur Leukocyte Esterase Tr Urine WBC (Auto) 3.0 Urine RBC (Auto) 27.0 U Epithel Cells (Auto) 7.0 Urine Mucus 3+ Urine HCG, Qual Negative - EKG Data -: EKG Interpreted by Id EKG shows normal: sinus rhythm, axis, intervals, QRS complexes, ST-T waves Rate: normal - EKG Data Interpretation: normal EKG Critical care attestation.: If time is entered above; I have spent that time in minutes in the direct care of this critically ill patient, excluding procedure time. ED Disposition Clinical Impression: Weakness, Wound infection Disposition: DC-01 TO HOME OR SELFCARE Is pt being admited?: No Does the pt Need Aspirin: No Condition: Stable Instructions: Wound Infection (ED), Weakness (ED) Additional Instructions: Return to the emergency department any acute change or problem. Follow-up with [facility] clinic. Rx Bactrim. Urine culture tests will be available in 2-3 days. At this point it does not look like a urinary tract infection. Prescriptions: Sulfamethoxazole/Trimethoprim [Bactrim DS TAB] 1 each PO BID #14 tablet Referrals: PRIMARY CARE, [Primary Care Provider] - 3-5 Days Time of Disposition: 14:42
[2019-08-21 13:34] LABS: Basophils % (Auto) 0.8 % (0.0-1.8); Eosinophils # (Auto) 0.1 K/mm3 (0.0-0.4); Eosinophils % (Auto) 1.2 % (0.0-4.3); Hematocrit 37.7 % (30.3-42.9); Hemoglobin 13.2 gm/dl (10.1-14.3); Lymphocytes % (Auto) 17.9 % (13.4-35.0); Mean Corpuscular HGB Conc 35 % (30-34); Mean Corpuscular Volume 91 fl (79-97); Monocytes # (Auto) 0.5 K/mm3 (0.0-0.8); Monocytes % (Auto) 8.9 % (0.0-7.3); Platelet Count 223 K/mm3 (140-440); Red Blood Count 4.15 M/mm3 (3.65-5.03); Red Cell Distribution Width 13.4 % (13.2-15.2)
[2019-08-21 13:42] LABS: INR 0.95 (0.87-1.13)
[2019-08-21 13:43] LABS: Partial Thromboplastin Time 25.9 Sec. (24.2-36.6)
[2019-08-21 14:00] LABS: Alanine Aminotransferase 24 units/L (7-56); BUN/Creatinine Ratio 36; Bilirubin,Direct 0.2 mg/dL (0-0.2); Blood Urea Nitrogen 18 mg/dL (7-17); Calcium 8.9 mg/dL (8.4-10.2); Hemolysis Index 8
[2019-08-21 14:05] LABS: Creatine Kinase MB 3.4 ng/mL (0.0-4.0)
[2019-08-21 14:35] LABS: HCG Qualitative,Urine Negative (Negative)
[2019-08-21 14:36] LABS: Bilirubin,Urine NEG (Negative); Blood,Urine SM (Negative); Color,Urine Amber (Yellow); Mucus,Urine 3+ /HPF; Protein,Urine <15 mg/dL mg/dL (Negative)
[2019-08-21 14:43] LABS: Amphetamine Screen,Urine PRESUMPTIVE NEGATIVE; Benzodiazepines Screen,Urine PRESUMPTIVE NEGATIVE; Methadone Screen,Urine PRESUMPTIVE NEGATIVE; Opiate Screen,Urine PRESUMPTIVE NEGATIVE
[2019-08-21 15:02] LABS: Cannabinoid Screen,Urine PRESUMPTIVE POSITIVE; Cocaine Screen,Urine PRESUMPTIVE POSITIVE
[2019-08-21 15:03] VITALS: BP 110/60
== END 2019-08-21 15:03 | disposition home or self-care (01) ==
LOC: ED 10:13
DX: R53.1 Weakness (principal); F25.0 Schizoaffective disorder, bipolar type; J45.909 Unspecified asthma, uncomplicated; L03.113 Cellulitis of right upper limb; L88 Pyoderma gangrenosum; Z87.442 Personal history of urinary calculi; Z90.89 Acquired absence of other organs; Z79.899 Other long term (current) drug therapy; Z88.8 Allergy status to other drugs, medicaments and biological substances
CPT/HCPCS: 36415; 80048; 80076; 80307; 81001; 81025; 82140; 82550; 82553; 83735; 85025; 85610; 85730; 87086; 93005; 93010

== ENCOUNTER 2020-05-01 22:29 | Emergency (ER) | payer MEDICARE ==
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
[2020-05-01 23:33] LABS: Bilirubin,Urine NEG (Negative); Blood,Urine LG (Negative); Color,Urine Straw (Yellow); Mucus,Urine FEW /HPF; Protein,Urine <15 mg/dL mg/dL (Negative); Urobilinogen,Urine < 2.0 mg/dL (<2.0); WBC,Urine < 1.0 /HPF (0.0-6.0)
[2020-05-01 23:34] LABS: Basophils # (Auto) 0.1 K/mm3 (0.0-0.1); Basophils % (Auto) 1.6 % (0.0-1.8); Eosinophils % (Auto) 0.7 % (0.0-4.3); Hematocrit 38.4 % (30.3-42.9); Hemoglobin 13.5 gm/dl (10.1-14.3); Lymphocytes # (Auto) 1.9 K/mm3 (1.2-5.4); Lymphocytes % (Auto) 27.4 % (13.4-35.0); Mean Corpuscular HGB Conc 35 % (30-34); Mean Corpuscular Volume 93 fl (79-97); Monocytes # (Auto) 0.8 K/mm3 (0.0-0.8); Monocytes % (Auto) 11.1 % (0.0-7.3); Platelet Count 302 K/mm3 (140-440); Red Blood Count 4.14 M/mm3 (3.65-5.03); Red Cell Distribution Width 13.1 % (13.2-15.2)
[2020-05-01 23:37] LABS: Blood Urea Nitrogen 8 mg/dL (7-17); Calcium 8.9 mg/dL (8.4-10.2); Hemolysis Index 5
[2020-05-01 23:40] LABS: Amphetamine Screen,Urine PRESUMPTIVE NEGATIVE; Benzodiazepines Screen,Urine PRESUMPTIVE NEGATIVE; Cannabinoid Screen,Urine PRESUMPTIVE POSITIVE; Cocaine Screen,Urine PRESUMPTIVE POSITIVE; Methadone Screen,Urine PRESUMPTIVE NEGATIVE; Opiate Screen,Urine PRESUMPTIVE NEGATIVE
[2020-05-01 23:43] LABS: BUN/Creatinine Ratio 13
[2020-05-02 08:20] VITALS: BP 125/74
== END 2020-05-02 15:33 | disposition home or self-care (01) ==
LOC: ED 22:29
DX: R45.851 Suicidal ideations (principal); F31.9 Bipolar disorder, unspecified; J45.909 Unspecified asthma, uncomplicated; F43.10 Post-traumatic stress disorder, unspecified; Z87.442 Personal history of urinary calculi; F12.10 Cannabis abuse, uncomplicated; F14.10 Cocaine abuse, uncomplicated; Z90.89 Acquired absence of other organs; Z98.890 Other specified postprocedural states; Z79.2 Long term (current) use of antibiotics; Z79.899 Other long term (current) drug therapy; Z88.8 Allergy status to other drugs, medicaments and biological substances
CPT/HCPCS: 36415; 80048; 80307; 80320; 81001; 84703; 85025; G0480